=== PATIENT | female | born 1990 | race Two or more races ===

== ENCOUNTER 2022-02-10 09:44 | Emergency (ER) | payer MEDICAID, OTHER ==
[~2022-02-10] VITALS: Ht 170.2 cm; Wt 59.0 kg
[2022-02-10 11:14] LABS: Basophils # (auto) 0 10 ^3/uL (0-0.2); Basophils % (auto) 0.1 % (0.0-2.0); Eosinophils # (auto) 0 10 ^3/uL (0-0.8); Hematocrit 40.2 % (36.0-46.0); Hemoglobin 13.7 g/dL (12.2-16.2); Lymphocytes # (auto) 1.6 10 ^3/uL (0.4-5.4); Lymphocytes % (auto) 13.8 % (10.0-50.0); Mean Corpuscular Hgb Conc. 34.1 g/dL (32.0-36.0); Mean Corpuscular Volume 87.9 fL (80.0-100.0); Monocytes # (auto) 0.7 10 ^3/uL (0-1.3); Monocytes % (auto) 5.7 % (0.0-12.0); Neutrophils # (auto) 9.3 10 ^3/uL (1.6-8.6); Neutrophils % (auto) 80.4 % (37.0-80.0); Nucleated Red Blood Cells % 0.1 %; Red Blood Cells 4.58 10^6/uL (4.0-5.20); Red Cell Distribution Width 13.6 % (11.8-14.3); White Blood Cell 11.5 10^3/uL (4.4-10.8)
[2022-02-10 11:34] LABS: BUN/Creatinine Ratio 11.8; Calcium 9.5 mg/dL (8.5-10.1); Potassium 3.8 mmol/L (3.5-5.1)
[2022-02-10 11:37] LABS: Bilirubin, Total 1.4 mg/dL (0.2-1.0); Total Protein 7.7 g/dL (6.4-8.2)
[2022-02-10 12:53] LABS: Urine Bacteria NONE SEEN /hpf (None Seen); Urine Blood 3+ /uL (Negative); Urine Mucus FEW (None Seen); Urine Specific Gravity 1.024 (1.001-1.035); Urine WBC 3 /hpf (0 - 5)
[2022-02-10] MEDS ORDERED: PROCHLORPERAZINE EDISYLATE 5 MG/ML 2ML VIAL IV ONE (13:30)
[2022-02-10] MEDS ORDERED: SODIUM CHLORIDE 0.9% 1,000 ML IVB ONE (13:30)
[2022-02-10 14:00] VITALS: BP 115/68
[2022-02-10] MEDS ORDERED: METO-281 PO (15:02)
== END 2022-02-10 16:03 | disposition home or self-care (01) ==
LOC: ER 09:44
DX: O36.4XX0 Maternal care for intrauterine death, not applicable or unspecified (principal); Z3A.01 Less than 8 weeks gestation of pregnancy
CPT/HCPCS: 36415; 76801; 76817; 80053; 81001; 84702; 85025; 86850; 86900; 86901; 96361; 96374; 99284; J0780; J7030